=== PATIENT | female | born 1980 | race Two or more races ===

== ENCOUNTER → 2021-11-27 | Outpatient (CLI) | payer OTHER ==
[2021-11-27] VITALS (17 sets, daily range): BP systolic 111–145; BP diastolic 65–89
== END | disposition home or self-care (01) ==
LOC: CARD DIAG 07:38
PROVIDERS: ATTEND Internal Medicine Interventional Cardiology
DX: R55 Syncope and collapse (principal)
CPT/HCPCS: 93660

== ENCOUNTER 2022-03-17 10:45 | Outpatient (CLI) | payer OTHER | END 2022-03-17 23:59 | disposition home or self-care (01) | LOC: RAD 10:45 | PROVIDERS: ATTEND Psychiatry & Neurology Neurology | DX: R94.01 Abnormal electroencephalogram [EEG] (principal); R55 Syncope and collapse | CPT/HCPCS: 95816 ==